=== PATIENT | female | born 1970 | race Caucasian/White ===

== ENCOUNTER → 2019-10-31 | Outpatient (CLI) | payer OTHER, MEDICAID | LOC: M.RAD 12:29 | DX: M25.561 Pain in right knee (principal) ==

== ENCOUNTER → 2019-11-03 | Outpatient (CLI) | payer OTHER, MEDICAID | LOC: M.RAD 10-31 14:45 | DX: N60.01 Solitary cyst of right breast (principal); N60.02 Solitary cyst of left breast ==

== ENCOUNTER → 2019-12-08 | Outpatient (CLI) | payer OTHER, MEDICAID | LOC: M.MRI 12-04 11:30 | DX: M71.21 Synovial cyst of popliteal space [Baker], right knee (principal); M25.551 Pain in right hip ==